=== PATIENT | male | born 1975 | race Caucasian/White ===

== ENCOUNTER 2017-07-25 10:46 | Inpatient (IN) | payer MEDICAID ==
[2017-07-25 11:21] LABS: HEMOGLOBIN 13.2 g/dL (12.0-18.0); MEAN CELL VOLUME 90.9 fL (80.0-94.0); MEAN CORPUSCULAR HEMOGLOBIN 30.9 pg (27.0-31.0); MEAN PLATELET VOLUME 9.8 fL (7.2-11.7); RBC 4.27 Mil/uL (4.40-5.90); RED CELL DISTRIBUTION WIDTH 14.2 % (11.5-14.5); WHITE BLOOD COUNT 3.5 K/uL (4.8-10.8)
[2017-07-25 11:26] LABS: URINE BACTERIA RARE (<OCC); URINE BILIRUBIN NEGATIVE (NEGATIVE); URINE BLOOD NEGATIVE (NEGATIVE); URINE CLARITY Clear (Clear); URINE COLOR Yellow (YELLOW); URINE GLUCOSE (UA) NORMAL (Normal); URINE LEUKOCYTE ESTERASE NEG Leu/uL (Negative); URINE PROTEIN NEGATIVE (NEGATIVE); URINE UROBILINOGEN NORMAL mg/dL (0.2-1.0)
[2017-07-25 11:39] LABS: ALB/GLOB RATIO 0.9 (1.0-2.1); ALBUMIN 4.2 g/dL (3.5-5.0); ALT/SGPT 86 U/L (21-72); AST/SGOT 93 U/L (17-59); BLOOD UREA NITROGEN 21 mg/dL (9-20); CALCIUM 9.1 mg/dl (8.6-10.4); GFR AFRICAN-AMERICAN > 60; GFR NON-AFRICAN AMERICAN > 60
--- NOTE | 2017-07-25 12:05 | C.PDOC ---
History Of Present Illness 41 year old male presents to the ED requesting heroin and methadone detox. Patient states he was removed from a methadone program and began using heroin since then. He reports his last use was this morning. Patient denies suicidal/ homicidal ideation and has no other complaints at this time. Time Seen by Provider: 07/25/17 11:18 Chief Complaint (Nursing): Psychiatric Evaluation History Per: Patient History/Exam Limitations: no limitations Onset/Duration Of Symptoms: Hrs Current Symptoms Are (Timing): Still Present Suicide/Self Injury Attempted (Context): None Modifying Factor(s): Narcotics (heroin ), Other (methadone ) Associated Symptoms: denies: Suicidal Thoughts, Suicidal Plan Involuntary Hold By: None Recent travel outside of the [place]: No Additional History Per: Patient Past Medical History Reviewed: Historical Data, Nursing Documentation, Vital Signs Vital Signs: Last Vital Signs Temp 98.2 F 07/25/17 10:58 Pulse 74 07/25/17 10:58 Resp 18 07/25/17 10:58 BP 122/82 07/25/17 10:58 Pulse Ox 96 07/25/17 13:00 - Medical History PMH: HIV Surgical History: No Surg Hx Family History: States: Unknown Family Hx - Social History Hx Tobacco Use: Yes Hx Alcohol Use: No Hx Substance Use: Yes - Immunization History Hx Tetanus Toxoid Vaccination: No Hx Influenza Vaccination: No Hx Pneumococcal Vaccination: No Review Of Systems Psych: Positive for: Other (substance abuse ). Negative for: Suicidal ideation Physical Exam - Physical Exam Appears: Non-toxic, No Acute Distress Skin: Normal Color, Warm, Dry Head: Atraumatic, Normacephalic Eye(s): bilateral: Normal Inspection Oral Mucosa: Moist Neck: Supple Chest: Symmetrical, No Deformity, No Tenderness Cardiovascular: Rhythm Regular, No Murmur Respiratory: Normal Breath Sounds, No Rales, No Rhonchi, No Wheezing Extremity: Normal ROM, Capillary Refill (less than 2 seconds ) Neurological/Psych: Oriented x3, Normal Speech, Normal Cognition ED Course And Treatment - Laboratory Results Result Diagrams: 07/25/17 11:16 07/25/17 11:16 O2 Sat by Pulse Oximetry: 96 (on RA) Pulse Ox Interpretation: Normal Medical Decision Making Medical Decision Making: Assessment: substance abuse Progress: Nicoderm Patch TD administered. Patient has been medically cleared. Case discussed with solid waste collection worker, who states there is a detox bed available. Patient admitted under Dr. Man's service for severe opiate abuse. Disposition Discussed With .: Ryne Man Doctor Will See Patient In The: Hospital - Disposition Disposition: HOSPITALIZED Disposition Time: 12:59 Condition: FAIR - Clinical Impression Clinical Impression: Opiate abuse, continuous - Scribe Statement The provider has reviewed the documentation as recorded by the Scribe (Katerin Welsh) Provider Attestation: All medical record entries made by the Scribe were at my direction and personally dictated by me. I have reviewed the chart and agree that the record accurately reflects my personal performance of the history, physical exam, medical decision making, and the department course for this patient. I have also personally directed, reviewed, and agree with the discharge instructions and disposition.
[2017-07-25 12:13] LABS: BARBITURATES, UR NEGATIVE (NEGATIVE); PHENCYCLIDINE, UR NEGATIVE (NEGATIVE)
[2017-07-25 12:41] LABS: BENZODIAZEPINES, UR POSITIVE (NEGATIVE); OPIATES, UR POSITIVE (NEGATIVE)
--- NOTE | 2017-07-25 15:00 | PCM.BM ---
<Juan MiguelAletheaKaty F - Last Filed: 07/25/17 14:59> Treatment assets and liabiliti Patient Assests: adapts well, cooperative, insightful, self-reliant Patient Liabilities: substance abuse, medical problems - Milieu Protocol Maintain good personal hygiene: daily Encourage regular showers, daily Remind patient to perform daily oral care, daily Assist patient to perform ADL's, every shift Encourage regular showers, every shift Remind patient to perform daily oral care, every shift Assist patient to perform ADL's Maintain personal safety: daily Educate patient to report safety concerns to staff, daily Monitor environment for contraband/sharps, every shift Educate patient to report safety concerns to staff, every shift Monitor environment for contraband/sharps Medication safety: Monitor for expected outcome, potential side effects: daily, every shift, Assess barriers to learning: daily, every shift, Assess readiness for medication education: daily, every shift <Elena Benson - Last Filed: 07/26/17 13:31> Family Contact Family involvement: Famliy/SO not involved - Goals for Treatment Patient goals for treatment: COMPLETE DETOX AND TRANSITION TO [facility]ROL MAINTENA[facility]CE. Discharge/Continuing Care - Education Needs Education Needs: Patient Medication, Patient Diagnosis/Disease Process, Patient Coping Skills, Patient Anger Management skills, Patient Placement options, Patient Community resources - Discharge Discharge Criteria: No longer exhibiting s/s of withdrawal, Reduction of target symptoms Discharge to:: Home - Treatment Team Participation Patient/Family/SO Statement: 07/26/17 13:32 "I WANNA TRY THE VIVITROL SHOT AFTER THIS..." Discussed with Family/SO: No Was Patient/Family/SO present at Treatment Team Meeting: Yes <Ryne Man - Last Filed: 07/29/17 17:11> - Diagnosis (1) Opiate abuse, continuous Status: Acute Interventions: 07/29/17 17:11 * Assess 7x/week regarding severity of withdrawal * Educate regarding risks, benefits, side effects and alternatives of medications * Use Motivational Interviewing for abstinence * Use CBT for relapse prevention * Medication management for withdrawal symptoms * Encourage medication assisted treatment *
[2017-07-26] MEDS: Multiple Vitamins Tab PO SCH (09:29)
--- NOTE | 2017-07-26 13:49 | PCM.PSYCH ---
Initial Psychiatric Evaluation - Initial Psychiatric Evaluation Type of Admission: Voluntary Legal Status: Capacity Chief Complaint (in patient's own words): "I need to stop methadone and heroin" History of Present Illness and Precipitating Events: The patient is seen, chart reviewed and case discussed. Sedative 31-year-old male, single with 2 children, unemployed, on welfare , lives with his mother. The patient claims that he was at [facility] for methadone maintenance for 3-1/2 years. His dose was 105 mg at max. However due to an allegation that he stole a T-shirt, which she adamantly denies, he was discharged and put on a "very fast" detox. His last dose was 30 mg yesterday. The patient states that he relapsed on heroin and blames them for this. He is using 7 bags a day. He is also on Ativan 1 mg twice a day, smokes marijuana daily to 3 blunts a day and cigarettes 6 cigarettes a day. He denies all other drugs. He has a very long opiates history with 5 detoxes and to rehabs as well as Suboxone treatment. Past psych history: He states he is very anxious and was given Celexa and Ativan. Medical history: HIV since 2004, he had some seizures in the past due to withdrawal, and he has hepatitis C. Family psych history: Denies Current Medications: Active Medications Generic Name Dose Route Start Last Admin Trade Name Freq PRN Reason Stop Dose Admin Clonidine HCl 0.1 mg 07/25/17 14:41 Catapres PO Q8 PRN Hypertension Darunavir 800 mg 07/26/17 10:00 07/26/17 09:29 Prezista PO 800 mg DAILY CAROLE Administration Protocol Dolutegravir Sodium 50 mg 07/26/17 10:00 07/26/17 09:29 Tivicay PO 50 mg DAILY CAROLE Administration Protocol Gabapentin 300 mg 07/25/17 18:00 07/26/17 09:29 Neurontin PO 300 mg TID CAROLE Administration Hydroxyzine HCl 50 mg 07/25/17 16:25 Atarax PO Q6H PRN Anxiety Ibuprofen 600 mg 07/25/17 16:25 Motrin Tab PO Q6H PRN Pain, moderate (4-7) Loperamide HCl 2 mg 07/25/17 14:38 Imodium PO QID PRN Diarrhea Lorazepam 0.5 mg 07/26/17 10:30 07/26/17 10:34 Ativan PO 0.5 mg TID CAROLE Administration Methadone HCl 25 mg 07/26/17 10:30 07/26/17 10:34 Methadone PO 08/01/17 10:29 25 mg Q24H CAROLE Administration Taper Mirtazapine 30 mg 07/25/17 22:00 07/25/17 21:29 Remeron PO 30 mg HS CAROLE Administration Multivitamins 1 tab 07/26/17 10:00 07/26/17 09:29 Hexavitamin PO 1 tab DAILY CAROLE Administration Nicotine 1 patch 07/25/17 11:45 07/26/17 09:27 Nicoderm Cq TD 1 patch DAILY CAROLE Administration Ondansetron HCl 4 mg 07/25/17 16:28 Zofran Tab PO Q8H PRN Nausea vomiting Ritonavir 100 mg 07/26/17 10:00 07/26/17 09:29 Norvir PO 100 mg DAILY CAROLE Administration Protocol Trazodone HCl 100 mg 07/25/17 16:25 Desyrel PO HS PRN Insomnia Past Psychiatric History - Past Psychiatric History Previous Treatment History: Intensive Outpatient Pertinent Medical Hx (Current Medical&Sleep Prob, Allergies): Allergies Allergy/AdvReac Type Severity Reaction Status Date / Time No Known Allergies Allergy Verified 07/25/17 11:01 Citalopram Hydrobromide [Citalopram HBr] 40 mg PO DAILY 07/25/17 Darunavir [Prezista] 1 tab PO DAILY 07/25/17 Dolutegravir Sodium [Tivicay] 50 mg PO DAILY 07/25/17 Gabapentin 300 mg PO TID 07/25/17 LORazepam [Ativan] 1 mg PO BID 07/25/17 Mirtazapine [Remeron] 30 mg PO 07/25/17 Ritonavir [Norvir] 1 tab PO DAILY 07/25/17 Review of Systems - Neurological Neurological: UNREMARKABLE - Psychiatric Psychiatric: Abnormal Sleep Pattern, Anhedonia, Anxiety, Difficulty Concentrating, Irritability. absent: Homicidal Ideation, Paranoia, Suicidal Ideation Mental Status Examination - Personal Presentation Personal Presentation: Looks stated age - Affect Affect: Constricted - Motor Activity Motor Activity: Calm - Reliability in Providing Information Reliability in Providing Information: Good - Speech Speech: Organized - Mood Mood: Anxious - Formal Thought Process Formal Thought Process: No Impairment - Cognitive Functions Orientation: Person, Place, Situation, Time Sensorium: Alert Attention/Concentration: Attentive Estimate of Intelligence: Average Judgement: Intact, as evidence by: Insight regarding need for hospitalization Memory: Recent intact, as evidence by: Ability to recall events of the day, Remote intact, as evidenced by: Abilit to recall sig. life events - Risk Risk: Withdrawal, Diminished functioning - Strength & Assets Inventory Strength & Assets Inventory: Cooperative - Limitations Limitations: Living alone, Other DSM 5 DX - DSM 5 DSM 5 Diagnosis: Opioid withdrawal Opioid use disorder, severe Cannabis use disorder, severe Sedative hypnotic use disorder, moderate Tobacco use disorder, mild Anxiety disorder unspecified Rule out VICKI - Recommended/Plan of Treatment Treatment Recommendations and Plan of Treatment: Start taper with methadone Ativan taper low dose/short Gabapentin for augmentation As needed medications All risks, benefits and alternatives of the meds discussed, and the pt agreed and understood. Attend groups and activities Supportive therapy and psychoeducation [place] for abstinence CBT for relapse prevention Encourage MAT Refer to rehab or IOP, and self-help groups Smoking cessation with [place] Nicotine patch if needed 34 min Projected ELOS: 5 days Prognosis: good w treatment - Smoking Cessation Smoking Cessation Initiated: Yes
[2017-07-27] MEDS: Multiple Vitamins Tab PO SCH (09:10)
--- NOTE | 2017-07-27 10:30 | PCM.PYCHPN ---
Psychiatric Progress Note - Psychiatric Progress Note Patient seen today, length of contact: 16 min Patient Chief Complaint: "I am still withdrawing." Problems Identified/Issues Discussed: The pt is seen, chart reviewed, case discussed with staff. The pt is compliant with medications and reports no side-effects. Patient states he is not sleeping at all. He states he is having trouble eating and does not have much of an appetite. Symptoms are improving but needs more time to stabilize. After care discussed, support and psychoeducation given. Medical Record Reviewed: Yes Mental Status Examination - Cognitive Function Orientation: Person, Place, Situation, Time Memory: Intact Attention: WNL Concentration: WNL Association: WNL Fund of Knowledge: WNL - Mood Mood: Anxious - Affect Affect: Constricted - Speech Speech: Soft - Formal Thought Process Formal Thought Process: No Impairment - Suicidal Ideation Suicidal Ideation: No - Homicidal Ideation Homicidal Ideation: No Goal/Treatment Plan - Goal/Treatment Plan Need for Continued Stay: Severe depression anxiety, Severe functional impairment Progress Toward Problem(s) and Goals/Treatment Plan: Opioid withdrawal Opioid use disorder, severe Cannabis use disorder, severe Sedative hypnotic use disorder, moderate Tobacco use disorder, mild Anxiety disorder unspecified Rule out VICKI Continue taper with methadone Ativan taper low dose/short Gabapentin for augmentation As needed medications All risks, benefits and alternatives of the meds discussed, and the pt agreed and understood. Attend groups and activities Supportive therapy and psychoeducation [place] for abstinence CBT for relapse prevention Encourage MAT Refer to rehab or IOP, and self-help groups Smoking cessation with [place] Nicotine patch if needed - Smoking Cessation Smoking Cessation Initiated: No
[2017-07-28] MEDS: Multiple Vitamins Tab PO SCH (09:53)
--- NOTE | 2017-07-28 14:37 | PCM.PYCHPN ---
Psychiatric Progress Note - Psychiatric Progress Note Patient seen today, length of contact: 16 min Patient Chief Complaint: "I am still having withdrawal symptoms." Problems Identified/Issues Discussed: The pt is seen, chart reviewed, case discussed with staff. Patient states slept a lot better last night. He complains of nausea and diarrhea. Support given, CBT and [place] used briefly No new symptoms reported, improving slowly and needs more time No SEs from medications, risks discussed. Medication Change: Yes (detox changes daily) Medical Record Reviewed: Yes Mental Status Examination - Cognitive Function Orientation: Person, Place, Situation, Time Memory: Intact Attention: WNL Concentration: WNL Association: WNL Fund of Knowledge: WNL - Mood Mood: Neutral - Affect Affect: Broad - Speech Speech: Soft - Formal Thought Process Formal Thought Process: No Impairment - Suicidal Ideation Suicidal Ideation: No - Homicidal Ideation Homicidal Ideation: No Goal/Treatment Plan - Goal/Treatment Plan Need for Continued Stay: Severe depression anxiety, Severe functional impairment Progress Toward Problem(s) and Goals/Treatment Plan: Continue taper with methadone Ativan taper low dose/short Gabapentin for augmentation As needed medications All risks, benefits and alternatives of the meds discussed, and the pt agreed and understood. Attend groups and activities Supportive therapy and psychoeducation [place] for abstinence CBT for relapse prevention Encourage MAT Refer to rehab or IOP, and self-help groups Smoking cessation with [place] Nicotine patch if needed
[2017-07-29] MEDS: Multiple Vitamins Tab PO SCH (09:55)
[2017-07-29] MEDS: Aluminum Hydroxide/Magnesium Hydroxide Susp (30 mL) PO PRN (12:51)
--- NOTE | 2017-07-29 14:11 | PCM.PYCHPN ---
Psychiatric Progress Note - Psychiatric Progress Note Patient seen today, length of contact: 15 minutes Patient Chief Complaint: I'm having some abdominal cramps. Otherwise I'm feeling better. Problems Identified/Issues Discussed: Patient seen, chart reviewed, case discussed with the staff. Issues related to illness and treatment were discussed with the patient and staff. Reported compliant with treatment with no adverse affects. Patient reported feeling much better. Also complaining about some abdominal cramps at times. Aftercare discussed with the patient. At the time of evaluation, patient was awake alert oriented 3, no delusions, no auditory visual hallucinations, no suicidal ideations or homicidal ideations. Medical Problems: HIV Hepatitis C Diagnostic Results: Reviewed DSM 5 Symptoms Update: Improving with treatment Medication Change: No Medical Record Reviewed: Yes Mental Status Examination - Cognitive Function Orientation: Person, Place, Situation, Time Memory: Intact Attention: WNL Concentration: WNL Association: WNL Fund of Knowledge: [facility] Decription of patient's judgement and insights: Fair - Mood Mood: Anxious (Less than before) - Affect Affect: Other (Appropriate) - Speech Speech: Soft - Formal Thought Process Formal Thought Process: No Impairment Psychotic Thoughts and Behaviors: None - Suicidal Ideation Suicidal Ideation: No - Homicidal Ideation Homicidal Ideation: No Goal/Treatment Plan - Goal/Treatment Plan Need for Continued Stay: Remain at risks for inpatient hospitalization, Discharge may exacerbated symptoms, Severe functional impairment Progress Toward Problem(s) and Goals/Treatment Plan: Patient education Supportive therapy CBT for relapse prevention [place] for abstinence Continue treatment as before Patient wants to go to [facility] for follow-up care after discharge from the hospital. Estimated Date of D/C: 07/31/17 - Smoking Cessation Smoking Cessation Initiated: Yes
[2017-07-30] MEDS: Multiple Vitamins Tab PO SCH (09:17)
[2017-07-30] MEDS: Aluminum Hydroxide/Magnesium Hydroxide Susp (30 mL) PO PRN (09:21)
--- NOTE | 2017-07-30 12:57 | PCM.PYCHPN ---
Psychiatric Progress Note - Psychiatric Progress Note Patient seen today, length of contact: 15 minutes Patient Chief Complaint: I'm still having some abdominal cramps. Otherwise I'm feeling better. Problems Identified/Issues Discussed: Patient seen, chart reviewed, case discussed with the staff. Issues related to illness and treatment were discussed with the patient and staff. Reported compliant with treatment with no adverse affects. Patient reported feeling much better. Also complaining about some abdominal cramps and diarrhea. Mood reported as good. Affect appropriate. Calm and cooperative with good eye contact. Aftercare discussed with the patient. At the time of evaluation, patient was awake alert oriented 3, no delusions, no auditory visual hallucinations, no suicidal ideations or homicidal ideations. Medical Problems: HIV Hepatitis C Diagnostic Results: Reviewed Medication Change: No Medical Record Reviewed: Yes Mental Status Examination - Cognitive Function Orientation: Person, Place, Situation, Time Memory: Intact Attention: WNL Concentration: WNL Association: WN Fund of Knowledge: [facility] Decription of patient's judgement and insights: Fair - Mood Mood: Neutral - Affect Affect: Other (Appropriate) - Speech Speech: Soft - Formal Thought Process Formal Thought Process: No Impairment Psychotic Thoughts and Behaviors: None - Suicidal Ideation Suicidal Ideation: No - Homicidal Ideation Homicidal Ideation: No Goal/Treatment Plan - Goal/Treatment Plan Need for Continued Stay: Remain at risks for inpatient hospitalization, Discharge may exacerbated symptoms, Severe functional impairment Progress Toward Problem(s) and Goals/Treatment Plan: Patient education Supportive therapy CBT for relapse prevention [place] for abstinence Continue treatment as before Patient wants to go to [facility] for follow-up care after discharge from the hospital. Estimated Date of D/C: 07/31/17 - Smoking Cessation Smoking Cessation Initiated: Yes
[2017-07-31 08:32] VITALS: BP 118/79; PULSE 78; RESP 20; TEMP 98.6; O2SAT 96
--- NOTE | 2017-07-31 08:53 | PCM.PYCHDC ---
Mental Status Examination - Mental Status Examination Orientation: Person Discharge Summary - Discharge Note Consultations:: List each consultation separately and include: 1. Reason for request. 2. Findings. 3. Follow-up Summary of Hospital Course include:: 1. Description of specific treatment plan utilized for patients during their course of treatmen. 2. Summarize the time- course for resolution of acute symptoms and/or regressed behaviors. 3. Describe issues identified and worked on during hospitalization. 4. Describe medication utilized. 5. Describe medical problems identified and treated. 6. Reassessment of suicide risk Summary of Hospital Course: The patient is seen, chart reviewed and case discussed. Sedative 31-year-old male, single with 2 children, unemployed, on welfare , lives with his mother. The patient claims that he was at [facility] for methadone maintenance for 3-1/2 years. His dose was 105 mg at max. However due to an allegation that he stole a T-shirt, which she adamantly denies, he was discharged and put on a "very fast" detox. His last dose was 30 mg yesterday. The patient states that he relapsed on heroin and blames them for this. He is using 7 bags a day. He is also on Ativan 1 mg twice a day, smokes marijuana daily to 3 blunts a day and cigarettes 6 cigarettes a day. He denies all other drugs. He has a very long opiates history with 5 detoxes and to rehabs as well as Suboxone treatment. Past psych history: He states he is very anxious and was given Celexa and Ativan. Medical history: HIV since 2004, he had some seizures in the past due to withdrawal, and he has hepatitis C. Family psych history: Denies He will go to [place] [facility]. - Diagnosis (1) Opiate abuse, continuous Current Visit: Yes Status: Acute - Final Diagnosis (DSM 5) Condition upon Discharge: FAIR Disposition: HOME/ ROUTINE Follow-up Treatment Plan: Continue taper with methadone Ativan taper low dose/short Gabapentin for augmentation As needed medications All risks, benefits and alternatives of the meds discussed, and the pt agreed and understood. Attend groups and activities Supportive therapy and psychoeducation [place] for abstinence CBT for relapse prevention Encourage MAT Refer to rehab or IOP, and self-help groups Smoking cessation with [place] Nicotine patch if needed Prescriptions/Medication Reconciliation: Dicyclomine [Bentyl] 10 mg PO Q8 PRN #20 cap PRN Reason: Gastric spasms Escitalopram [Lexapro] 10 mg PO DAILY #30 tab Gabapentin [Neurontin] 300 mg PO TID #90 cap Loperamide [Imodium] 2 mg PO Q8 PRN #10 cap PRN Reason: Diarrhea Mirtazapine [Remeron] 30 mg PO HS #30 tab Multivitamins [Hexavitamin] 1 tab PO DAILY #30 tab QUEtiapine [SEROquel] 50 mg PO HS #30 tab
[2017-07-31] MEDS: Multiple Vitamins Tab PO SCH (09:06)
== END 2017-07-31 10:15 | disposition home or self-care (01) | DRG 745 ==
LOC: C.ER 10:46 → C.7D 13:00
PROVIDERS: ADMIT Psychiatry & Neurology Psychiatry; ATTEND Psychiatry & Neurology Psychiatry
PROC: HZ2ZZZZ Detoxification Services for Substance Abuse Treatment (ICD-10-PCS; principal; 2017-07-25)
DX: F11.23 Opioid dependence with withdrawal (principal); F12.20 Cannabis dependence, uncomplicated; F19.10 Other psychoactive substance abuse, uncomplicated; F17.200 Nicotine dependence, unspecified, uncomplicated; F41.9 Anxiety disorder, unspecified